=== PATIENT | male | born 1985 | race Caucasian/White ===

== ENCOUNTER 2024-04-20 15:40 | Emergency (ER) | payer BC, SELFPAY ==
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
[2024-04-20] MEDS ORDERED: ONDANSETRON 4 MG/2 ML VIAL ONE (15:50)
[2024-04-20] MEDS ORDERED: MORPHINE 4 MG/ML SYR ONE (15:50)
[2024-04-20] MEDS ORDERED: CEFAZOLIN SODIUM 1 GM/VIAL ONE (16:09)
[2024-04-20] MEDS ORDERED: NA CHLORIDE 0.9% 1,000 ML ONE (16:10)
[2024-04-20] MEDS ORDERED: TDAP (DIPHTH,PERTUSS(ACELL),TET VAC) 0.5 ML VIAL IMVAC ONE (16:10)
[2024-04-20] MEDS ORDERED: NA CHLORIDE 0.9% 100 ML ONE (16:10)
[2024-04-20] MEDS ORDERED: HYDROMORPHONE HCL 1 MG/ML INJ ONE (16:29)
[2024-04-20 16:31] LABS: Absolute Eosinophils 0.9 K/uL (0-0.5); Absolute Lymphocytes (CBC) 1.9 K/uL (0.7-4.9); Absolute Monocytes 1.1 K/uL (0.1-1.3); Absolute Neutrophil 3.9 K/uL (1.8-8.0); Eosinophils % 11.9 % (0-4.4); Hematocrit 39.9 % (39.6-49.0); Hemoglobin 13.7 g/dL (13.6-17.9); Lymphocytes % 23.8 % (15.3-44.8); MCH 32.1 pg (27.0-35.0); MCHC 34.5 g/dL (32.0-36.0); MCV 93.1 fL (80-100); MPV 8.7 fL (7.6-11.3); Monocytes % 14.3 % (3.3-12.3); Platelets 228 thou/uL (152-406); RBC Red Blood Cell Count 4.28 M/uL (4.33-5.43); Red Cell Distribution Width 11.8 % (12.1-15.2)
[2024-04-20 16:34] LABS: PT Prothrombin Time 11.4 SECONDS (9.5-12.5); PTT, Activated Partial Thromb 33.8 SECONDS (24.3-36.9); Protime INR 1.04
[2024-04-20 16:44] LABS: Anion Gap 9.6 mEq/L (5.0-15.0); Potassium 3.6 mEq/L (3.5-5.1)
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
--- NOTE | 2024-04-20 17:45 | RAD REPORT ---
EXAM DESCRIPTION: RAD - Hand Right 3 View - 04/20/2024 4:40 pm CLINICAL HISTORY: chainsaw injury COMPARISON: No comparisons TECHNIQUE: Right hand, 3 views. FINDINGS: Comminuted, displaced, fifth digit middle phalanx fracture, with intra-articular extension along the head of the phalanx. There is no dislocation or periosteal reaction noted. No foreign body or other soft tissue abnormalit y. IMPRESSION: Comminuted, displaced, fifth digit middle phalanx fracture.
[2024-04-20 18:49] VITALS: TEMP 98.2
[2024-04-20 19:12] VITALS: BP 136/91; O2SAT 100
== END 2024-04-20 18:43 | disposition short-term general hospital (02) ==
LOC: ER 15:40
DX: S62.626B Displaced fracture of middle phalanx of right little finger, initial encounter for open fracture (principal); S61.411A Laceration without foreign body of right hand, initial encounter
CPT/HCPCS: 36415; 80048; 85025; 85610; 85730; 96361; 96365; 96372; 96375; 99285; J0690; J1170; J2405; J7030

== ENCOUNTER 2024-04-30 10:01 | Emergency (ER) | payer SELFPAY ==
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
[2024-04-30] MEDS ORDERED: ACTIVATED CHARCOAL 50 GM/240 ML ONE ×2 (10:20→10:24)
[2024-04-30] MEDS ORDERED: NA CHLORIDE 0.9% 1,000 ML ONE (10:22)
[2024-04-30 10:26] LABS: Absolute Eosinophils 0.2 K/uL (0-0.5); Absolute Lymphocytes (CBC) 2.6 K/uL (0.7-4.9); Absolute Monocytes 0.7 K/uL (0.1-1.3); Absolute Neutrophil 4.6 K/uL (1.8-8.0); Basophils % 0.5 % (0-1.3); Eosinophils % 2.4 % (0-4.4); Hematocrit 38.6 % (39.6-49.0); Hemoglobin 13.2 g/dL (13.6-17.9); Lymphocytes % 32.4 % (15.3-44.8); MCH 31.5 pg (27.0-35.0); MCHC 34.1 g/dL (32.0-36.0); MCV 92.5 fL (80-100); MPV 7.6 fL (7.6-11.3); Monocytes % 8.1 % (3.3-12.3); Neutrophils % 56.6 % (41.7-73.7); Platelets 271 thou/uL (152-406); RBC Red Blood Cell Count 4.18 M/uL (4.33-5.43)
[2024-04-30 10:33] LABS: PT Prothrombin Time 12.4 SECONDS (9.5-12.5); PTT, Activated Partial Thromb 32.1 SECONDS (24.3-36.9); Protime INR 1.13
[2024-04-30 10:34] LABS: Blood Gas Oxyhemoglobin 94.9 % (94-97); Blood Gas THB 13.8 g/dl (12-18); Blood O2 Saturation 98.8 % (92-98.5)
[2024-04-30] MEDS ORDERED: propofoL 1,000 MG/100 ML VIAL IV ONE (10:36)
[2024-04-30 10:43] LABS: ALT/SGPT 17 U/L (16-61); Albumin 3.2 g/dL (3.4-5.0); Alkaline Phosphatase 76 U/L (45-117); Anion Gap 5.5 mEq/L (5.0-15.0); BUN Blood Urea Nitrogen 15 mg/dL (7-18); Bicarbonate 28 mEq/L (21-32); Bilirubin Total 0.6 mg/dL (0.2-1.0); Globulin 3.2 g/dL (2.3-3.5); Glomerular Filtration Rate 101 ml/min (=/>90); Glucose Level 98 mg/dL (74-106); Protein, Total 6.4 g/dL (6.4-8.2); Sodium Level 138 mEq/L (136-145)
[2024-04-30 10:44] LABS: AST/SGOT 11 U/L (15-37); Bilirubin Direct < 0.2 mg/dL (0-0.2); Bilirubin Indirect, Calculated 0.4 mg/dL (0.2-0.8); Potassium 3.5 mEq/L (3.5-5.1)
[2024-04-30 10:45] LABS: Specific Gravity 1.025 (1.005-1.030); Sqamous Epithelial <5 /HPF (None Seen); Urine Bacteria None Seen /HPF (<20); Urine Bilirubin NEGATIVE (Negative); Urine Blood Negative (Negative); Urine Clarity Clear (Clear); Urine Color Yellow (Yellow); Urine Culture Reflex Order NOT NEEDED; Urine Glucose NEGATIVE (Negative); Urine Ketones NEGATIVE (Negative); Urine Microscopic Reflex YN ORDER UMIC; Urine Mucus 2+ /HPF (None Seen); Urine Nitrite NEGATIVE (Negative); Urine Protein TRACE (Negative); Urine RBC <5 /HPF (None Seen); Urine Urobilinogen Normal (Normal); Urine WBC <5 /HPF (<5); Urine pH 6.5 (5.0-7.0)
[2024-04-30 10:53] LABS: Barbiturates NEGATIVE (NEGATIVE); Benzodiazepines POSITIVE (NEGATIVE); Cocaine NEGATIVE (NEGATIVE); METHAMPHETAM POSITIVE (NEGATIVE); Methadone NEGATIVE (NEGATIVE); Opiates NEGATIVE (NEGATIVE); Phencyclidine NEGATIVE (NEGATIVE); THC Cannibis NEGATIVE (NEGATIVE)
--- NOTE | 2024-04-30 11:38 | EDPHYS ---
Physician Documentation [facility] Name: Tera Peter Age: 39 yrs Sex: Male : 1985 Arrival Date: 04/30/2024 Time: 10:01 Bed 2 Private MD: ED Physician Luz Elena Patel HPI: 04/30 10:18 This 39 yrs old Male presents to ER via Unassigned with complaints of OVERDOSE / sp3 Intubated. 10:18 39-year-old male with known psychiatric history including prior suicide attempt now sp3 presents to the ED intubated by EMS for benzodiazepine overdose of approximately 20 to 32 mg tabs of "[place] Xanax" as per EMS report. Bottle is not present. Allegedly, patient has been talking about suicide for the last several days and even attempted to drive his [place] the [place]. Today he took these tabs and locked himself inside of the room at his place of employment where coworkers were able to intervene. EMS initially arrived to find patient awake and talking but rapidly declined mental status requiring intubation approximately 15 minutes prior to arrival. No further history noted and patient is intubated. Therefore ROS, history and physical are severely limited.. Historical: - Allergies: 12:01 No Known Allergies; kc6 - Home Meds: 10:01 Unable to obtain [Active]; kc6 - PMHx: 10:01 JOSUE TO BODY; kc6 - PSHx: 10:01 Skin grafting; kc6 - Immunization history:: Adult Immunizations unknown. - Infectious Disease History:: Denies. - Social history:: Smoking status: unknown. - Code Status:: Full code. - Unable to obtain history due to: unresponsive. ROS: 10:20 Unable to obtain ROS due to altered mental status, patient is on ventilator, sp3 Exam: 10:20 Constitutional: The patient appears Patient unresponsive intubated with a GCS of 3T. sp3 Pupils are 3 mm and minimally responsive. Lungs are clear and cardiac exam is normal. Abdomen is soft with no distention. No rash noted. Patient has surgical wound on the right hand from a recent orthopedic surgery for which it appears he is pulled out the sutures prematurely. No active bleeding, erythema noted. Further exam is limited. Endotracheal tube is 23 cm to the teeth with active misting in the tube. 10:46 ECG was reviewed by the Attending Physician. EKG demonstrates normal sinus rhythm at 83 sp3 bpm with a QTc 498 otherwise normal intervals, normal axis, normal QRS, nonspecific diffuse ST's ST changes without evidence of acute ischemia. Vital Signs: 10:03 BP 206 / 139; Pulse 91; Resp 16 S; Temp 98.1(TE); Pulse Ox 100% on ETT vent; kc6 10:12 BP 193 / 125; Pulse 85; Resp 18 A; Pulse Ox 100% on ETT vent; kc6 10:15 BP 180 / 129; Pulse 82; Resp 18 A; Pulse Ox 100% on ETT vent; kc6 10:18 Weight 82.55 kg; db 10:30 BP 177 / 124; Pulse 74; Resp 21 A; Pulse Ox 100% on ETT vent; kc6 10:40 BP 129 / 102; Pulse 64; Resp 18 A; Pulse Ox 100% on ETT vent; kc6 10:45 BP 136 / 103; Pulse 66; Resp 18 A; Pulse Ox 100% on ETT vent; kc6 11:18 BP 138 / 102; Pulse 63; Resp 18 A; Pulse Ox 100% on ETT vent; kc6 12:04 BP 130 / 94; Pulse 64; Resp 18 A; Pulse Ox 100% on ETT vent; kc6 12:52 BP 122 / 90; Pulse 61; Resp 18 A; Pulse Ox 100% on ETT vent; kc6 MDM: 10:11 Patient medically screened. sp3 10:22 Data reviewed: vital signs, nurses notes, old medical records, lab test result(s), EKG, sp3 radiologic studies. ED course: 39-year-old male with benzodiazepine Xanax overdose of approximately 40 to 60 mg. Initially patient was intubated with rocuronium and etomidate at 9:39 AM as per EMS record. Patient received flumazenil 0.5 mg IV upon arrival and is receiving activated charcoal via NG tube. The rocuronium should be wearing off at approximately 1040 to 11 AM within the next 30 minutes. Further intervention will be considered depending on clinical status. ABG demonstrates 7.33/53/256. I have instructed respiratory to bring back FiO2 to 50% and increase tidal volume to 500 mL with a rate of 18 giving a 9 L minute volume. Patient has an VELIA in place but will likely need medical admission.. 11:35 ED course: Patient will be transferred due to no ICU capacity here. Urine drug screen sp3 is positive for benzodiazepine and methamphetamine. Remainder of labs demonstrate no significant abnormalities. Blood gas is now normal with last set of adjustments. I spoken to family who agrees with the plan.. 11:48 ED course: Discussed with [facility] ICU land law examiner attending physician who has sp3 graciously excepted this patient.. 04/30 10:12 Order name: Acetaminophen; Complete Time: 10:54 04/30 10:12 Order name: Basic Metabolic Panel; Complete Time: :54 04/30 10:12 Order name: CBC with Diff; Complete Time: 10:39 04/30 10:12 Order name: ETOH Level; Complete Time: :54 04/30 10:12 Order name: Hepatic Function; Complete Time: 04/30 10:12 Order name: PT-INR; Complete Time: 10:39 04/30 10:12 Order name: Ptt, Activated; Complete Time: 10:39 04/30 10:12 Order name: Salicylate; Complete Time: 11:04/30 10:12 Order name: Urinalysis w/ reflexes; Complete Time: :54 04/30 10:12 Order name: Urine Drug Screen; Complete Time: :54 04/30 10:13 Order name: ABG; Complete Time: 10:39 04/30 10:14 Order name: Lactate w/ 2H reflex if indic.; Complete Time: 11:10 04/30 10:14 Order name: CK; Complete Time: 11:10 04/30 11:35 Order name: ABG 04/30 11:17 Order name: CXR XRAY; Complete Time: 12:15 04/30 10:12 Order name: EKG - Nurse/Tech; Complete Time: 10:32 04/30 10:12 Order name: IV Saline Lock; Complete Time: 10:32 04/30 10:12 Order name: Labs collected and sent; Complete Time: 10:32 04/30 10:12 Order name: Suicide Precautions; Complete Time: 10:32 04/30 10:13 Order name: NG Tube; Complete Time: 10:51 10 10:13 Order name: Geovanni; Complete Time: 10:32 sp3 04/30 10:38 Order name: Vital Signs; Complete Time: 10:57 sp3 Administered Medications: 10:03 Drug: Flumazenil IVP 0.5 mg IVP once; Over 15 seconds Route: IVP; Site: left hand; kc6 11:16 Follow up: Response: No adverse reaction kc6 10:45 Drug: Actidose PO Suspension (50 g/240 mL) 1 g/kg PO once {Note: [id number].} Route: PO; kc6 11:15 Follow up: Response: No adverse reaction kc6 10:45 Drug: NS 0.9% IV 1000 ml IV at 1 bolus Per protocol; 1000 mL bolus Route: IV; Rate: 1 kc6 bolus; Site: left antecubital; 13:19 Follow up: Response: No adverse reaction; IV Status: Infusion continued upon transfer; kc6 IV Intake: 1000ml 10:45 Drug: Propofol IVP 40 mg IVP once; Document RASS score. Route: IVP; Site: left kc6 antecubital; 11:16 Follow up: Response: No adverse reaction; RASS: Moderate sedation (-3) kc6 10:45 Drug: Propofol IV 10 mcg/kg/min IV at calculated rate See Administration Instructions; kc6 Standard concentration 1000 mg / 100 mL; Recommended max rate 50 mcg/kg/min; Titrate 2 mcg/kg/min every 5 minutes to achieve goal (see titration policy); Goal parameter RASS score 0 to -2 Route: IV; Rate: calculated rate; Site: left antecubital; 12:04 Follow up: Response: No adverse reaction; RASS: Deep sedation (-4) kc6 13:19 Follow up: Response: No adverse reaction; RASS: Deep sedation (-4); Rate change 10 kc6 mcg/kg/min; IV Status: Infusion continued upon transfer Disposition Summary: 04/30/24 11:38 Transfer Ordered Notes: Transfer Location: [facility] sp3 Reason: Higher level of care sp3 Condition: Critical sp3 Problem: new sp3 Symptoms: have worsened sp3 Accepting Physician: ANJANA(04/30/24 13:19) bc6 Diagnosis - Intentional benzodiazepine overdose, suicide attempt, altered mental status, sp3 methamphetamine use Forms: - Medication Reconciliation Form sp3 - SBAR form sp3 Critical care time excluding procedures: 10:47 Critical care time: Bedside Care: 20 minutes, Consultation: 10 minutes, Family sp3 Intervention: 10 minutes. Total time: 40 minutes Signatures: Dispatcher [employer] EDLuz Elena Miranda MD MD sp3 Wendy Armendariz, RN RN kc6 Sharlene An bc6 Corrections: (The following items were deleted from the chart) 11:17 11:17 Chest Single View+RAD.RAD.BRZ ordered. EDMS EDMS 11:35 11:35 Arterial Blood Gas+RC.LAB.BRZ ordered. EDMS EDMS 13:19 11:38 TBD sp3 bc6 19:33 10:01 Allergies: Unable to obtain; kc6 kc6
--- NOTE | 2024-04-30 11:38 | ER ---
Nurse's Notes [facility] Name: Tera Peter Age: 39 yrs Sex: Male : 1985 Arrival Date: 04/30/2024 Time: 10:01 Bed 2 Private MD: Diagnosis: Intentional benzodiazepine overdose, suicide attempt, altered mental status, methamphetamine use Presentation: 04/30 10:01 Chief complaint: EMS states: they were toned out for overdose. pt reportedly took 20-30 kc6 2mg tablets of Xanax as an SI attempt. 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 pt was given 20mg of Etomidate and 80mg of Berlin by EMS. 10:01 Coronavirus screen: At this time, the client does not indicate any symptoms associated kc6 with coronavirus-19. Ebola Screen: No symptoms or risks identified at this time. 10:01 Method Of Arrival: EMS: [facility] kc6 10:01 Care prior to arrival: Oral intubation, IV initiated. 20 GA, in the left hand, Glucose kc6 check: 107. 10:01 Activity prior to arrival: unresponsive. kc6 10:03 Initial Sepsis Screen: Does the patient meet any 2 criteria? No. Patient's initial kc6 sepsis screen is negative. Does the patient have a suspected source of infection? No. Patient's initial sepsis screen is negative. Risk Assessment: Do you want to hurt yourself or someone else? Unable to obtain. Onset of symptoms was April 30, 2024. 10:03 Acuity: CAPO 2 kc6 Historical: - Allergies: 12:01 No Known Allergies; kc6 - Home Meds: 10:01 Unable to obtain [Active]; kc6 - PMHx: 10:01 JOSUE TO BODY; kc6 - PSHx: 10:01 Skin grafting; kc6 - Immunization history:: Adult Immunizations unknown. - Infectious Disease History:: Denies. - Social history:: Smoking status: unknown. - Code Status:: Full code. - Unable to obtain history due to: unresponsive. Screenin:45 [facility] ED Fall Risk Assessment (Adult) History of falling in the last 3 months, kc6 including since admission No falls in past 3 months (0 pts) Confusion or Disorientation Yes (5 pts) Intoxicated or Sedated Yes (3 pts) Impaired Gait No (0 pts) Mobility Assist Device Used No (0 pt) Altered Elimination No (0 pt) Score/Fall Risk Level 3 or more points = High Risk. Abuse screen: Denies threats or abuse. Denies injuries from another. Nutritional screening: No deficits noted. Tuberculosis screening: No symptoms or risk factors identified. Assessment: 10:01 General: Appears distressed, well groomed, well developed, Behavior is unresponsive. kc6 Pain: Unable to use pain scale. Patient is unresponsive. Neuro: Level of Consciousness is unresponsive, Oriented to none. Cardiovascular: Capillary refill < 3 seconds Rhythm is sinus rhythm. Respiratory: Airway via oral intubation Trachea midline Respiratory effort is even, unlabored, Respiratory pattern is regular, symmetrical. GI: No signs and/or symptoms were reported involving the gastrointestinal system. : No signs and/or symptoms were reported regarding the genitourinary system. EENT: No signs and/or symptoms were reported regarding the EENT system. Derm: No signs and/or symptoms reported regarding the dermatologic system. Skin is intact, is healthy with good turgor, Skin is diaphoretic, Skin is normal, Skin temperature is warm. Musculoskeletal: No signs and/or symptoms reported regarding the musculoskeletal system. Circulation, motion, and sensation intact. Capillary refill < 3 seconds, Range of motion: intact in all extremities. 11:00 Reassessment: Patient appears in no apparent distress at this time. No changes from 6 previously documented assessment. Patient and/or family updated on plan of care and expected duration. Pain level reassessed. 12:00 Reassessment: Patient appears in no apparent distress at this time. No changes from kc6 previously documented assessment. Patient and/or family updated on plan of care and expected duration. Pain level reassessed. 12:01 Reassessment: Pearl Peter (eldest sister) [phone] ... Kenia alcantara (youngest sister) [phone]. 12:52 Reassessment: Patient appears in no apparent distress at this time. No changes from 6 previously documented assessment. Patient and/or family updated on plan of care and expected duration. Pain level reassessed. 13:19 Reassessment: pt provided in line suction by RT prior to departure. kc6 Vital Signs: 10:03 BP 206 / 139; Pulse 91; Resp 16 S; Temp 98.1(TE); Pulse Ox 100% on ETT vent; kc6 10:12 BP 193 / 125; Pulse 85; Resp 18 A; Pulse Ox 100% on ETT vent; kc6 10:15 BP 180 / 129; Pulse 82; Resp 18 A; Pulse Ox 100% on ETT vent; kc6 10:18 Weight 82.55 kg; db 10:30 BP 177 / 124; Pulse 74; Resp 21 A; Pulse Ox 100% on ETT vent; kc6 10:40 BP 129 / 102; Pulse 64; Resp 18 A; Pulse Ox 100% on ETT vent; kc6 10:45 BP 136 / 103; Pulse 66; Resp 18 A; Pulse Ox 100% on ETT vent; kc6 11:18 BP 138 / 102; Pulse 63; Resp 18 A; Pulse Ox 100% on ETT vent; kc6 12:04 BP 130 / 94; Pulse 64; Resp 18 A; Pulse Ox 100% on ETT vent; kc6 12:52 BP 122 / 90; Pulse 61; Resp 18 A; Pulse Ox 100% on ETT vent; kc6 ED Course: 10:01 Arm band placed on. kc6 10:01 Patient has correct armband on for positive identification. Placed in gown. Bed in low kc6 position. Call light in reach. Side rails up X2. hall monitor on. Pulse ox on. NIBP on. Warm blanket given. Pillow given. 10:01 One-on-one care X 60 minutes. kc6 10:11 Patient arrived in ED. bd 10:11 Luz Elena Patel MD is Attending Physician. sp3 10:30 Galarza cath inserted, using sterile technique, 16 Fr., by ED staff, balloon inflated, to kc6 gravity drainage, clamped. urine specimen collected. returned clear yellow urine. Patient tolerated well. 10:30 NGT: inserted 16 Fr. via right nare. verified placement of air over stomach, Patient kc6 tolerated well. 10:45 Inserted saline lock: 22 gauge in right wrist, using aseptic technique. Blood kc6 collected. Inserted saline lock: 20 gauge in left antecubital area, using aseptic technique. Blood collected. 10:54 Triage completed. kc6 11:59 CXR XRAY In Process Unspecified. EDMS 12:11 initiated transfer to [facility], pt accepted in transfer by dr Valencia admin bd approval given by María Navarro,pt going to icu 209. 12:27 ems unable to transport due to being on a transport to [place], per [facility]. [facility] ems bd will transport pt. 13:19 Provided Education on: family educated on pts condition and need for transfer by Dr. quinton Patel. 13:19 No provider procedures requiring assistance completed. Patient transferred, IV remains kc6 in place. Administered Medications: 10:03 Drug: Flumazenil IVP 0.5 mg IVP once; Over 15 seconds Route: IVP; Site: left hand; kc6 11:16 Follow up: Response: No adverse reaction kc6 10:45 Drug: Actidose PO Suspension (50 g/240 mL) 1 g/kg PO once {Note: [id number].} Route: PO; kc6 11:15 Follow up: Response: No adverse reaction kc6 10:45 Drug: NS 0.9% IV 1000 ml IV at 1 bolus Per protocol; 1000 mL bolus Route: IV; Rate: 1 kc6 bolus; Site: left antecubital; 13:19 Follow up: Response: No adverse reaction; IV Status: Infusion continued upon transfer; kc6 IV Intake: 1000ml 10:45 Drug: Propofol IVP 40 mg IVP once; Document RASS score. Route: IVP; Site: left kc6 antecubital; 11:16 Follow up: Response: No adverse reaction; RASS: Moderate sedation (-3) kc6 10:45 Drug: Propofol IV 10 mcg/kg/min IV at calculated rate See Administration Instructions; kc6 Standard concentration 1000 mg / 100 mL; Recommended max rate 50 mcg/kg/min; Titrate 2 mcg/kg/min every 5 minutes to achieve goal (see titration policy); Goal parameter RASS score 0 to -2 Route: IV; Rate: calculated rate; Site: left antecubital; 12:04 Follow up: Response: No adverse reaction; RASS: Deep sedation (-4) kc6 13:19 Follow up: Response: No adverse reaction; RASS: Deep sedation (-4); Rate change 10 kc6 mcg/kg/min; IV Status: Infusion continued upon transfer Medication: 13:19 VIS not applicable for this client. kc6 Intake: 13:19 IV: 1000ml; Total: 1000ml. kc6 Outcome: 11:38 ER care complete, transfer ordered by . sp3 13:19 Patient left the ED. bc6 13:19 Transferred by ground EMS to [facility], Transfer form completed. kc6 Note: report called to SHAYNE Sanabria 13:19 critical kc6 13:19 Instructed on the need for transfer, Signatures: Dispatcher [employer] EDMS Kylie Penaloza Setul, MD MD sp3 Wendy Armendariz RN RN kc6 Carito Mcdonnell RN RN Sharlene Tobin 6 Corrections: (The following items were deleted from the chart) 11:20 10:01 Chief complaint: EMS states: they were toned out for overdose. pt reportedly took kc6 20-30 2mg tablets of Xanax as an SI attempt. upon EMS arrival pt was A\T\O x4 but lost his gag reflex en route and was intubated PRODUCTION TECHNICIAN. pt was given 20mg of Etomidate and 80mg of [place] by EMS kc6 12:05 10:01 Respiratory: Ventilator assessment: ET Tube: 7.5 23 cm 23cm at the teeth Breath kc6 sounds are clear bilaterally. kc6 19:31 10:03 BP 206 / 139; Pulse 91bpm; Resp 16bpm; Spontaneous; Pulse Ox 100% ET / kc6 Ventilator; 6 19:33 10:01 Allergies: Unable to obtain; kc6 kc6
[2024-04-30 11:46] LABS: Arterial Blood Carboxyhemoglob 1.7 % (0-1.5); Blood Gas Oxyhemoglobin 95.2 % (94-97); Blood Gas THB 13.6 g/dl (12-18); Blood O2 Saturation 98.8 % (92-98.5)
--- NOTE | 2024-04-30 12:07 | RAD REPORT ---
EXAM DESCRIPTION: RAD - Chest Single View - 04/30/2024 11:58 am CLINICAL HISTORY: tube placement Chest pain. COMPARISON: CHEST SINGLE VIEW dated 04/22/2013; CHEST SINGLE VIEW dated 02/27/2013 FINDINGS: Portable technique limits examination quality. Mild linear atelectasis is seen in both lung bases. The lungs are otherwise clear. The heart is sander l in size. ET tube tip is at the level of the clavicular heads. Enteric tube coils in the stomach.
[2024-04-30 13:53] VITALS: BP 122/90; O2SAT 100
--- NOTE | 2024-05-01 15:10 | EKG ---
Test Date: 2024-04-30 Test Time: 10:21:58 [employer]rentice: WADE MEASUREMENT RESULTS: Intervals: Rate: 83 ND: 164 QRSD: 96 QT: 424 QTc: 498 Sargeant: P: 70 ND: 164 QRS: 85 T: 90 INTERPRETIVE STATEMENTS: Normal sinus rhythm Prolonged QT Abnormal ECG Compared to ECG 04/22/2013 19:49:25 Prolonged QT interval now present Sinus tachycardia no longer present Electronically Signed On 05-01-24 15:06:29 CDT by Paul Vivar
== END 2024-04-30 13:19 | disposition short-term general hospital (02) ==
LOC: ER 10:01
DX: T42.4X2A Poisoning by benzodiazepines, intentional self-harm, initial encounter (principal); F15.90 Other stimulant use, unspecified, uncomplicated
CPT/HCPCS: 36415; 36600; 51702; 71045; 80048; 80076; 80143; 80179; 80307; 81001; 82077; 82550; 82805; 83605; 85025; 85610; 85730; 93005; 94002; 99291; 99292; J2704; J7030